=== PATIENT | female | born 1980 | race Caucasian/White ===

== ENCOUNTER 2016-04-02 14:24 | Emergency (ER) | payer BC ==
[2016-04-02 14:58] LABS: Hematocrit 41.5 % (37.0-47.0); Hemoglobin 14.2 gm/dL (12.5-16.0); Mean Cell Volume 94.1 fl (78-100); Mean Corpuscular Hemoglobin 32.2 pg (27-31); Mean Corpuscular Hgb Conc 34.2 g/dl (32-36); Mean Platelet Volume 9.2 fl (6.0-9.5); Neutrophil # 5.1 K/mm3 (1.3-6.0); Neutrophil % 70.9 % (42-75.0); Platelet Count 251 K/mm3 (150-450); Red Blood Count 4.41 M/mm3 (4.2-5.4); Red Cell Distribution Width 11.6 % (11.5-14.0); White Blood Count 7.2 K/mm3 (4.0-10.5)
[2016-04-02 15:16] LABS: Albumin * 3.4 gm/dl (3.4-5.0); Anion Gap 13.1 mmol/L (6.8-13.8); BUN/Creatinine Ratio 15.9 (9.0-21.6); Bilirubin, Total 0.5 mg/dL (0.0-1.1); Calcium * 8.8 mg/dL (7.9-10.9); Carbon Dioxide 27.2 mmol/L (24-32.6); Potassium 3.3 mmol/L (3.4-4.6)
[2016-04-02 15:59] LABS: Urine Bilirubin 1 mg/dl (NEGATIVE); Urine Ketone 5 mg/dL (NEGATIVE); Urine Nitrite Negative (NEGATIVE); Urine Protein Negative (NEGATIVE); Urine Urobilinogen 4 EU/dl (NORMAL); Urine pH 6.5 pH (5.0-7.0)
[2016-04-02] MEDS ORDERED: NORMAL SALINE 1,000 ML IV ONE (16:00)
[2016-04-02] MEDS ORDERED: ONDANSETRON HCL/PF 2 MG/ML VIAL IV ONE (16:01)
[2016-04-02] MEDS ORDERED: DICYCLOMINE HCL 10 MG/ML AMPUL IM ONE ×2 (16:01→16:07)
[2016-04-02 16:10] LABS: Urine Appearance Cloudy; Urine Bacteria 1+; Urine Blood 10 /ul (NEGATIVE); Urine Color Yellow; Urine RBC 0-5 /hpf (0-5); Urine WBC None Seen /hpf (0-5)
--- NOTE | 2016-04-02 16:10 | ERNOTE ---
Abdominal HPI - Narrative Date of Service: 04/02/16 - General Chief Complaint: Abdominal Pain Time Seen by Provider: 04/02/16 15:53 Source: patient Exam Limitations: no limitations - Immun/Allergies/Home Medications Immunizatons: IMMUNIZATION HX Immunizations Up to Date Yes History of Influenza Vaccine No Hx Pneumococcal Vaccination No Allergies/Adverse Reactions: Allergies fluoxetine HCl [From Prozac] Allergy (Unknown, Verified 04/02/16 14:44) lithium Allergy (Unknown, Verified 04/02/16 14:44) sertraline Allergy (Unknown, Verified 04/02/16 14:44) suvorexant [From Belsomra] Allergy (Unknown, Verified 04/02/16 14:44) tramadol Allergy (Unknown, Verified 04/02/16 14:44) naproxen Allergy (Verified 04/02/16 14:44) Home Medications: HOME MEDICATIONS Dextroamphetamine/Amphetamine [Adderall Xr 20 mg Capsule] 20 mg PO DAILY [Last Taken Unknown] Loratadine [Claritin] 10 mg PO DAILY PRN 11/06/15 [Last Taken Unknown] Albuterol Sulfate [Proair Hfa] 1 - 2 puff IH Q4H PRN 12/05/15 [Last Taken Unknown] Budesonide [Pulmicort Flexhaler] 1 puff IH BID 12/05/15 [Last Taken Unknown] Budesonide [Pulmicort Respules] 2 ml IH BID 12/05/15 [Last Taken Unknown] Hydrocodone/Acetaminophen [Lortab 5-325 mg Tablet] 1 each PO QID PRN 12/05/15 [ Last Taken Unknown] clonazePAM [Klonopin] 1 - 2 mg PO HS PRN 12/05/15 [Last Taken Unknown] clonazePAM [Klonopin] 1 mg PO DAILY 12/05/15 [Last Taken Unknown] Dicyclomine HCl [Bentyl] 10 - 20 mg PO TID #80 tab 04/02/16 [Last Taken Unknown] - History of Present Illness Narrative: Pt. comes in with c/o RUQ pain that radiates to her r upper and lower back for four days. Pt. states that this has occurred previously but resolved without treatment. Pt. denies any alleviating factors but states that eating worsens the pain and it is accompanied by severe nausea and vomiting and diarrhea. Pt. denies any fevers or prehospital treatment. Review of Systems - Review of Systems Constitutional: Present: weakness, fatigue, malaise. Absent: recent illness, fever, chills EYE: Present: no symptoms reported ENT: Present: no symptoms reported Respiratory: Present: no symptoms reported. Absent: shortness of breath, cough , wheezing Cardiology: Present: no symptoms reported. Absent: chest pain, palpitations, edema Gastrointestinal/Abdominal: Present: nausea, vomiting, diarrhea, abdominal pain , eating less, drinking less. Absent: constipation Genitourinary: Present: no symptoms reported Musculoskeletal: Present: no symptoms reported. Absent: back pain, joint pain Skin: Present: no symptoms reported. Absent: rash, change in color Neurological: Present: no symptoms reported. Absent: headache, dizziness/light- headedness, numbness, tingling All Other Systems: All systems neg except as marked - Patient's Past Medical History Patient History - Medical: ADHD, Anxiety, GERD Patient History - Cardiac/Respiratory: No pertinent hx Patient History - Cancer: No Hx of Cancer Patient History - Surgical Procedures: Cholecystectomy, Tubal Ligation - Social History Living Situations: home Smoking Status: Current every day smoker Have you smoked in the past 12 months: Yes Do you dip or chew tobacco: No Alcohol Use: occasionally Drug Use: none Physical Exam - Physical Exam General Appearance: Present: wd/wn, alert, no apparent distress Eye Exam: Normal inspection: bilateral, PERRL: bilateral, EOMI: bilateral Ears, Nose, Throat: Present: normal ENT inspection, hearing grossly normal, normal pharynx Neck: Present: normal inspection, nontender. Absent: lymphadenopathy (R), lymphadenopathy (L) Respiratory: Present: no respiratory distress, normal breath sounds, no accessory muscle use, chest nontender, lungs clear Cardiovascular/Chest: Present: regular rate, rhythm, no murmur, normal peripheral pulses Gastrointestinal/Abdominal: Present: normal bowel sounds, nondistended, soft, no organomegaly, tenderness - RUQ RLQ periumbilical. 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 Absent: pallor, skin rash ED Progress - Date and Time Seen: Date and Time: 04/02/16 17:[address] Salomon and he recommends pt. to follow up for MRCP with PCP as pt. wants to go home and follow up with PCP in am. - Results and Orders Patient's Lab Results:: I have reviewed the patient's lab results. - Vital Signs Patient's Vital Signs:: I have reviewed the patient's vital signs. Vital Signs: Vital Signs 04/02/16 14:41 Temperature 35.9 C L Pulse Rate 98 Respiratory 14 Rate Blood Pressure 123/66 O2 Sat by Pulse 97 Oximetry - CT/Ultrasound CT/Ultrasound Narrative: US negative for any findings - Progress/Reassessment Chief Complaint: Abdominal Pain Progress:: Improved Departure - Departure Clinical Impression: Elevated LFTs, Fatty liver Disposition: Home self-care Condition: Good Instructions: Nonalcoholic Fatty Liver Disease Diet, Liver Function Tests Additional Instructions: Clear liquid diet only until seen by Sandra Sultana. Please follow up with Sandra Sultana in the morning to discuss MRCP or HIDA scan Prescriptions: Dicyclomine HCl [Bentyl] 10 - 20 mg PO TID #80 tab
[2016-04-02] MEDS ORDERED: ONDANSETRON HCL/PF 2 MG/ML VIAL ONE (16:44)
[2016-04-02 16:50] VITALS: BP 114/77
[2016-04-04 11:53] LABS: Hepatitis C Antibody NON-REACTIVE (NON-REACTIVE)
[2016-04-04 12:28] LABS: Hepatitis A IgM Antibody NON-REACTIVE (NON-REACTIVE); Hepatitis B Surface Antigen NON-REACTIVE (NON-REACTIVE)
== END 2016-04-02 18:06 | disposition home or self-care (01) ==
LOC: ER 14:24
DX: R94.5 Abnormal results of liver function studies (principal); K76.0 Fatty (change of) liver, not elsewhere classified; F17.210 Nicotine dependence, cigarettes, uncomplicated; Z90.49 Acquired absence of other specified parts of digestive tract; F90.9 Attention-deficit hyperactivity disorder, unspecified type